=== PATIENT | female | born 2000 ===

== ENCOUNTER 2022-12-17 12:22 | Outpatient (CLI) ==
[~2022-12-17] VITALS: Ht 154.9 cm; Wt 93.9 kg
[2022-12-17 12:45] VITALS: BP 125/87; O2SAT 99
[2022-12-17] MEDS ORDERED: TUMS500C PO (12:47)
[2022-12-17] MEDS ORDERED: ASPI81CH33 PO (12:47)
[2022-12-17] MEDS ORDERED: PRENTAB9 PO (12:47)
[2022-12-17] MEDS ORDERED: HOME MED LIST COMPLETE! XX SCH (12:50)
[2022-12-17 14:45] VITALS: BP 108/66
[2022-12-17 15:49] VITALS: BP 114/68
[2022-12-17] MEDS ORDERED: FLUCONAZOLE 50MG TABLET PO ONE (15:55)
[2022-12-17 19:40] LABS: GC DNA AMPLIFICATION NEGATIVE (NEGATIVE)
== END 2022-12-17 16:18 | disposition home or self-care (01) ==
LOC: M LDO 12:22
PROVIDERS: ATTEND Advanced Practice Midwife
DX: O23.592 Infection of other part of genital tract in pregnancy, second trimester (principal); B37.9 Candidiasis, unspecified; O26.852 Spotting complicating pregnancy, second trimester; Z3A.25 25 weeks gestation of pregnancy
CPT/HCPCS: 59025; 87810; 87850; G0463

== ENCOUNTER 2023-03-22 01:05 | Outpatient (CLI) | payer OTHER, SELFPAY ==
[~2023-03-22 01:05] MED LIST: ASPI81CH33 PO; PRENTAB9 PO; TUMS500C PO
== END 2023-03-22 02:25 | disposition home or self-care (01) ==
LOC: M LDO 01:05 → UNDOADMIN 08:36 → M LDI 08:36
PROVIDERS: ATTEND Obstetrics & Gynecology
DX: O47.1 False labor at or after 37 completed weeks of gestation (principal); Z3A.39 39 weeks gestation of pregnancy
CPT/HCPCS: 59025; G0463

== ENCOUNTER 2023-03-22 07:16 | Inpatient (IN) | payer OTHER ==
[~2023-03-22] VITALS: Ht 157.5 cm; Wt 95.0 kg
[2023-03-22] VITALS (63 sets, daily range): BP systolic 94–175; BP diastolic 53–109
[2023-03-22] MEDS ORDERED: LACTATED RINGER'S 1000 ML IV STA (08:24)
[2023-03-22] MEDS ORDERED: LIDOCAINE 1% MDV 20ML VIAL INFIL PRN (08:25)
[2023-03-22] MEDS ORDERED: OXYTOCIN DRIP 30 UNITS in IV 1 EA IV PRN ×4 (08:25)
[2023-03-22] MEDS ORDERED: TRANEXAMIC ACID INJection 1,000 MG in NS 100 ML IV PRN (08:25)
[2023-03-22] MEDS ORDERED: METHYLERGONOVINE MALEATE 0.2MG/ML 1ML VIAL IM PRN ×2 (08:25→22:05)
[2023-03-22] MEDS ORDERED: HOME MED LIST COMPLETE! XX SCH (08:45)
[2023-03-22 08:48] LABS: HEMATOCRIT 34.2 % (36.0-47.0); HEMOGLOBIN 11.2 g/dl (12.0-15.5); MEAN CORPUSCULAR HEMOGLOBIN 26.7 pg (27.0-33.0); MEAN CORPUSCULAR HGB CONC 32.7 g/dl (32.0-36.5); MEAN CORPUSCULAR VOLUME 81.4 fl (80.0-96.0); PLATELET COUNT, AUTOMATED 267 10^3/uL (150-450)
[2023-03-22] MEDS ORDERED: EPIDURAL/PCA KEYS XX PRN (09:10)
[2023-03-22] MEDS ORDERED: NALOXONE INJ 0.4MG/1ML VIAL IV PRN (09:10)
[2023-03-22] MEDS ORDERED: diphenhydrAMINE 50MG/ML VIAL IV PRN (09:10)
[2023-03-22] MEDS ORDERED: ePHEDrine SULFATE 25 MG/5 ML(5MG/ML) SYRINGE IVP PRN (09:10)
[2023-03-22] MEDS ORDERED: ONDANSETRON 4MG 2ML VIAL IV PRN ×2 (09:10→22:05)
[2023-03-22] MEDS ORDERED: LR 500 ML IV PRN (09:10)
[2023-03-22] MEDS: LR 1,000 ML IV SCH ×2 (09:44→19:37)
[2023-03-22] MEDS: FENTANYL/ROPIVACAINE/NACL BAG 100 ML EPIDURAL SCH ×2 (09:54→17:12)
[2023-03-22] MEDS ORDERED: OXYTOCIN DRIP 30 UNITS in IV 1 EA IV SCH ×2 (17:15→22:05)
[2023-03-22] MEDS ORDERED: CALCIUM CARBONATE 500 MG CHEW U/D PO ONE (17:15)
[2023-03-22] MEDS ORDERED: LR 1,000 ML IV SCH ×2 (17:15→22:05)
[2023-03-22] MEDS ORDERED: BICITRA 30ML SOLN UDC PO ONE (20:00)
[2023-03-22 21:29] LABS: CORD GAS ABE V -3.5; CORD GAS HCO3 V 21.8 MMOL/L; CORD GAS O2 SAT V 64.4 %; CORD GAS PCO2 V 40.1 mmHg; CORD GAS PH V 7.353 UNITS; CORD GAS PO2 V 28.5 mmHg; CORD GAS SBC V 20.8 MMOL/L
[2023-03-22 21:30] LABS: CORD GAS ABE A -5.8; CORD GAS HCO3 A 21.8 MMOL/L; CORD GAS O2 SAT A 45.6 %; CORD GAS PCO2 A 50.1 mmHg; CORD GAS PH A 7.256 UNITS; CORD GAS SBC A 18.6 MMOL/L; CORD GAS TCO2 A 23.3 MMOL/L
[2023-03-22] MEDS ORDERED: DOCUSATE SODIUM 100MG CAPSULE PO PRN (22:05)
[2023-03-22] MEDS ORDERED: IBUPROFEN 600MG TAB PO PRN (22:05)
[2023-03-22] MEDS ORDERED: ACETAMINOPHEN TAB 650MG DOSE (2X325MG) PO PRN (22:05)
[2023-03-22] MEDS ORDERED: DIBUCAINE 1% OINTMENT 30GM TOP PRN (22:05)
[2023-03-22] MEDS ORDERED: RHOGAM 300MCG (1500IU) INJ IM SCH (22:05)
[2023-03-22] MEDS ORDERED: METOCLOPRAMIDE INJ 10MG/2ML VIAL IV PRN (22:05)
[2023-03-22] MEDS ORDERED: OXYTOCIN 30UNITS IN 0.9% NaCl 500ML IV BAG As Ordered ONE (22:23)
[2023-03-22] MEDS: IBUPROFEN 800 MG TAB PO PRN (23:12)
[2023-03-22] MEDS: ACETAMINOPHEN 500 MG TAB PO PRN (23:48)
[2023-03-23] MEDS: ACETAMINOPHEN 500 MG TAB PO PRN ×3 (05:48→21:20)
[2023-03-23 06:00] VITALS: BP 121/71; O2SAT 98
[2023-03-23 07:56] LABS: MEAN CORPUSCULAR HEMOGLOBIN 27.3 pg (27.0-33.0); MEAN CORPUSCULAR HGB CONC 33.1 g/dl (32.0-36.5); MEAN CORPUSCULAR VOLUME 82.5 fl (80.0-96.0); PLATELET COUNT, AUTOMATED 212 10^3/uL (150-450); RED BLOOD COUNT 3.15 10^6/uL (4.00-5.40); WHITE BLOOD COUNT 16.5 10^3/uL (4.0-10.0)
[2023-03-23 08:15] LABS: HEMOGLOBIN 8.6 g/dl (12.0-15.5)
[2023-03-23] MEDS ORDERED: PRENATAL VITAMINS CHEWABLE TABLET PO SCH (09:00)
[2023-03-23] MEDS: PRENATAL VITAMINS CHEWABLE TABLET PO SCH (09:20)
[2023-03-23] MEDS: IBUPROFEN 800 MG TAB PO PRN ×2 (09:20→17:40)
[2023-03-23] MEDS: CALCIUM CARBONATE 500 MG CHEW U/D PO SCH ×4 (09:21→21:19)
[2023-03-23 18:00] VITALS: BP 128/81; O2SAT 100
[2023-03-24] MEDS: IBUPROFEN 800 MG TAB PO PRN (02:45)
[2023-03-24 06:00] VITALS: BP 116/76
[2023-03-24] MEDS ORDERED: MEASLES,MUMPS,RUBELLA VACCINE INJ (MMR-II) SC.IMMUN ONE (09:00)
[2023-03-24] MEDS: ACETAMINOPHEN 500 MG TAB PO PRN (10:33)
[2023-03-24] MEDS: CALCIUM CARBONATE 500 MG CHEW U/D PO SCH (10:33)
[2023-03-24] MEDS: PRENATAL VITAMINS CHEWABLE TABLET PO SCH (10:33)
[2023-03-24] MEDS ORDERED: INFLUENZA QUADRIVALENT PF VACCINE 0.5ML SYRINGE IM.IMMUN ONE (11:00)
== END 2023-03-24 13:34 | disposition home or self-care (01) | DRG 807 ==
LOC: M LDO 07:16 → M LDI 09:03 → M OBS 23:33
PROVIDERS: ADMIT Obstetrics & Gynecology; ATTEND Obstetrics & Gynecology
PROC: 10E0XZZ Delivery of Products of Conception, External Approach (ICD-10-PCS; principal; 2023-03-22)
PROC: 0KQM0ZZ Repair Perineum Muscle, Open Approach (ICD-10-PCS; 2023-03-22)
DX: O24.420 Gestational diabetes mellitus in childbirth, diet controlled (principal); Z37.0 Single live birth; Z3A.39 39 weeks gestation of pregnancy; O70.1 Second degree perineal laceration during delivery